=== PATIENT | female | born 1970 | race Caucasian/White ===

== ENCOUNTER → 2020-07-23 | Outpatient (CLI) | payer OTHER ==
[~2020-07-23] VITALS: Ht 157.5 cm; Wt 92.1 kg
== END ==
LOC: OPSV 10:00
DX: M05.9 Rheumatoid arthritis with rheumatoid factor, unspecified (principal)
CPT/HCPCS: 96365; 96366; J7050; Q5103

== ENCOUNTER → 2020-09-03 | Outpatient (CLI) | payer OTHER ==
[~2020-09-03] VITALS: Ht 157.5 cm; Wt 92.1 kg
== END ==
LOC: OPSV 10:00
DX: M06.9 Rheumatoid arthritis, unspecified (principal)
CPT/HCPCS: 96365; 96366; J7050; Q5103

== ENCOUNTER → 2020-10-15 | Outpatient (CLI) | payer OTHER ==
[~2020-10-15] VITALS: Ht 157.5 cm; Wt 92.1 kg
== END ==
LOC: OPSV 10:00
DX: M06.9 Rheumatoid arthritis, unspecified (principal); M05.9 Rheumatoid arthritis with rheumatoid factor, unspecified
CPT/HCPCS: 96365; 96366; J7050; Q5103